=== PATIENT | male | born 1965 | race Caucasian/White ===

== ENCOUNTER → 2017-09-21 | Outpatient (REF) | payer OTHER | LOC: M LAB REF 09:40 | DX: J11.1 Influenza due to unidentified influenza virus with other respiratory manifestations (principal) | CPT/HCPCS: 87633 ==

== ENCOUNTER 2019-07-07 20:02 | Emergency (ER) | payer BC, OTHER ==
[~2019-07-07] VITALS: Ht 177.8 cm; Wt 145.4 kg
[2019-07-07] MEDS ORDERED: TRUL0.5I SC (20:17)
[2019-07-07] MEDS ORDERED: BIMA1SOL OD (20:17)
[2019-07-07] MEDS ORDERED: LEVE1INJ5 SC (20:17)
[2019-07-07] MEDS ORDERED: MULTCAP PO (20:17)
[2019-07-07] MEDS ORDERED: triglide PO (20:17)
[2019-07-07] MEDS ORDERED: METF-791 PO (20:17)
[2019-07-07] MEDS ORDERED: ASPI81CH44 PO (20:17)
[2019-07-07] MEDS ORDERED: PRIL20TA2 PO (20:17)
[2019-07-07] MEDS ORDERED: NOVOINJ3 SC (20:17)
[2019-07-07] MEDS ORDERED: GATI1SOL2 OP (20:17)
[2019-07-07] MEDS ORDERED: LOVA1CAP17 PO (20:17)
[2019-07-07] MEDS ORDERED: BENI1TAB3 PO (20:17)
[2019-07-07] MEDS ORDERED: CRES20TA2 PO (20:17)
[2019-07-07] MEDS ORDERED: D 202000 PO (20:17)
[2019-07-07] MEDS ORDERED: TETRACAINE 0.5% OPHTH SOLN 4ML OD ONE (21:00)
[2019-07-07 23:14] VITALS: BP 150/70
[2019-07-07] MEDS ORDERED: NORCO 5/325MG TABLET (BULK FOR ED) PO ONE (23:15)
== END 2019-07-07 23:23 | disposition home or self-care (01) ==
LOC: M ED 20:02
DX: S05.01XA Injury of conjunctiva and corneal abrasion without foreign body, right eye, initial encounter (principal); X58.XXXA Exposure to other specified factors, initial encounter; Y92.89 Other specified places as the place of occurrence of the external cause; E11.9 Type 2 diabetes mellitus without complications; I10 Essential (primary) hypertension; E78.5 Hyperlipidemia, unspecified; K21.9 Gastro-esophageal reflux disease without esophagitis; Z79.899 Other long term (current) drug therapy; Z79.82 Long term (current) use of aspirin; Z79.4 Long term (current) use of insulin

== ENCOUNTER → 2020-01-27 | Outpatient (CLI) | payer BC ==
[~2020-01-27] MED LIST: ASPI1CHW3 PO; BENI1TAB3 PO; BIMA1SOL OD; CRES20TA2 PO; D 202000 PO; GATI1SOL2 OP; LEVE1INJ5 SC; LOVA1CAP17 PO; METF-838 PO; MULTCAP PO; NOVOINJ3 SC; PRIL20TA2 PO; TRUL0.5I SC; triglide PO
--- NOTE | 2020-01-27 14:48 | REP ---
Duplex extremity venous ultrasound: Left lower extremity. History: Left leg pain. Rule out DVT. Findings: The deep veins are anechoic and fully compressible from the groin to the popliteal fossa in the left lower extremity. Color flow imaging is homogeneous. Spectral Doppler interrogation demonstrates intact respiratory variation in flow and normal manual augmentation of flow. There is no evidence of deep vein thrombosis. Impression: Negative left lower extremity duplex venous ultrasound. No evidence of deep vein thrombosis. Electronically Signed by Hubert Fisher MD 01/27/2020 02:39 P
== END ==
LOC: M WHC 14:15
PROVIDERS: ATTEND Orthopaedic Surgery Hand Surgery
DX: M79.662 Pain in left lower leg (principal)

== ENCOUNTER → 2020-03-27 | Outpatient (REF) | payer OTHER, BC | LOC: M LAB REF 09:35 | PROVIDERS: ATTEND Physician Assistant | DX: B07.9 Viral wart, unspecified (principal) ==

== ENCOUNTER → 2022-03-24 | Outpatient (CLI) | payer BC, OTHER ==
[2022-03-24 14:55] LABS: ALBUMIN 3.7 GM/DL (3.2-5.2); ALT/SGPT 63 U/L (12-78); BLOOD UREA NITROGEN 18 MG/DL (7-18); CALCIUM LEVEL 9.5 MG/DL (8.5-10.1); CARBON DIOXIDE LEVEL 27 MEQ/L (21-32); CHLORIDE LEVEL 107 MEQ/L (98-107); CREATININE FOR GFR 0.93 MG/DL (0.70-1.30); GLOMERULAR FILTRATION RATE > 60.0 (>56); GLUCOSE, FASTING 127 MG/DL (70-100); POTASSIUM SERUM 4.8 MEQ/L (3.5-5.1); SODIUM LEVEL 138 MEQ/L (136-145); TOTAL PROTEIN 6.6 GM/DL (6.4-8.2)
== END ==
LOC: M LAB 13:47
PROVIDERS: ATTEND Family Medicine
DX: E11.65 Type 2 diabetes mellitus with hyperglycemia (principal); I10 Essential (primary) hypertension

== ENCOUNTER → 2022-06-30 | Outpatient (REF) | payer OTHER, BC ==
[~2022-06-30] MED LIST changes: -BENI1TAB3 PO; +BIMA0.036 OD; -BIMA1SOL OD; +OLME20TA55 PO
[2022-06-30 12:02] LABS: HEMATOCRIT 43.7 % (42.0-52.0)
[2022-06-30 14:03] LABS: PHOSPHORUS LEVEL 4.7 MG/DL (2.5-4.9)
[2022-06-30 14:06] LABS: PERCENT SATURATION 18.4 % (19.7-50.0)
[2022-06-30 14:11] LABS: FERRITIN 177.5 NG/ML (10.5-307.3); TOTAL 25(OH) VITAMIN D 50.8 NG/ML (20.0-100.0)
== END ==
LOC: M LAB REF 11:07
PROVIDERS: ATTEND Family Medicine
DX: K91.2 Postsurgical malabsorption, not elsewhere classified (principal); Z98.84 Bariatric surgery status; Z86.39 Personal history of other endocrine, nutritional and metabolic disease; E55.9 Vitamin D deficiency, unspecified

== ENCOUNTER → 2022-10-14 | Outpatient (CLI) | payer BC, OTHER ==
[~2022-10-14] MED LIST changes: +INSU100I6 SC; -LEVE1INJ5 SC
[2022-10-14 14:44] LABS: BASO # 0.1 10^3/uL (0.0-0.2); EOS # 0.2 10^3/uL (0.0-0.5); EOS % 3.2 % (0.0-3.0); HEMOGLOBIN 12.7 g/dl (13.5-17.5); LYMPH # 2.8 10^3/uL (1.5-5.0); LYMPH % 46.7 % (24.0-44.0); MEAN CORPUSCULAR HEMOGLOBIN 28.3 pg (27.0-33.0); MEAN CORPUSCULAR HGB CONC 32.6 g/dl (32.0-36.5); MEAN CORPUSCULAR VOLUME 87.1 fl (80.0-96.0); MONO # 0.5 10^3/uL (0.0-0.8); MONO % 7.5 % (2.0-8.0); NEUTROPHILS # 2.5 10^3/uL (1.5-8.5); NEUTROPHILS % 41.1 % (36.0-66.0); PLATELET COUNT, AUTOMATED 261 10^3/uL (150-450); RED BLOOD COUNT 4.48 10^6/uL (4.30-6.10)
[2022-10-14 14:49] LABS: IRON (FE) 104 UG/DL (65-175)
[2022-10-14 14:50] LABS: PERCENT SATURATION 34.3 % (19.7-50.0); TOTAL IRON BINDING CAPACITY 303 UG/DL (250-425)
[2022-10-14 14:56] LABS: ALBUMIN 3.7 G/DL (3.2-5.2); ALKALINE PHOSPHATASE 141 U/L (46-116); ALT/SGPT 83 U/L (7.0-40); AST/SGOT 41 U/L (<34); BILIRUBIN,TOTAL 1.6 MG/DL (0.3-1.2); BLOOD UREA NITROGEN 15 MG/DL (9-23); CALCIUM LEVEL 9.1 MG/DL (8.5-10.1); CARBON DIOXIDE LEVEL 29 MMOL/L (20-31); CHLORIDE LEVEL 100 MMOL/L (98-107); CREATININE FOR GFR 0.71 MG/DL (0.70-1.30); FERRITIN 201.9 NG/ML (10.5-307.3); FOLATE > 24.00 NG/ML (>5.4); GLOMERULAR FILTRATION RATE > 60.0 (>56); GLUCOSE, FASTING 244 MG/DL (60-100); MAGNESIUM LEVEL 1.6 MG/DL (1.8-2.4); PHOSPHORUS LEVEL 3.9 MG/DL (2.5-4.9); POTASSIUM SERUM 4.6 MMOL/L (3.5-5.1); SODIUM LEVEL 134 MMOL/L (136-145); TOTAL PROTEIN 6.5 G/DL (5.7-8.2); VITAMIN B12 LEVEL 1613 PG/ML (211-911)
[2022-10-14 15:14] LABS: HEMOGLOBIN A1c 9.5 % (4.0-6.0)
== END ==
LOC: M LAB 13:43
PROVIDERS: ATTEND Physician Assistant Surgical
DX: K91.2 Postsurgical malabsorption, not elsewhere classified (principal); E55.9 Vitamin D deficiency, unspecified; Z98.84 Bariatric surgery status; Z86.39 Personal history of other endocrine, nutritional and metabolic disease

== ENCOUNTER → 2022-11-11 | Outpatient (REF) | payer BC, OTHER ==
[~2022-11-11] MED LIST changes: +ASPI-655 PO; -ASPI1CHW3 PO; -GATI1SOL2 OP; +GATI2.5D OP
== END ==
LOC: M LAB REF 16:17
PROVIDERS: ATTEND Family Medicine
DX: R74.01 Elevation of levels of liver transaminase levels (principal)

== ENCOUNTER → 2023-01-13 | Outpatient (CLI) | payer BC, OTHER | LOC: M RAD 07:25 | PROVIDERS: ATTEND Family Medicine | DX: R74.01 Elevation of levels of liver transaminase levels (principal) ==

== ENCOUNTER → 2023-03-10 | Outpatient (REF) | payer OTHER ==
[2023-03-10 12:34] LABS: HEMATOCRIT 40.8 % (42.0-52.0)
[2023-03-11 16:18] LABS: TOTAL 25(OH) VITAMIN D 39.3 NG/ML (20.0-100.0)
== END ==
LOC: M LAB REF 11:48
PROVIDERS: ATTEND Family Medicine
DX: D64.9 Anemia, unspecified (principal); K91.2 Postsurgical malabsorption, not elsewhere classified; Z98.84 Bariatric surgery status

== ENCOUNTER → 2023-07-24 | Outpatient (REF) | payer OTHER | LOC: M LAB REF 16:47 | PROVIDERS: ATTEND Family Medicine | DX: E11.65 Type 2 diabetes mellitus with hyperglycemia (principal); Z98.84 Bariatric surgery status ==

== ENCOUNTER → 2024-03-25 | Outpatient (CLI) | payer BC, OTHER ==
[2024-03-25 11:48] LABS: BASO % 0.4 % (0.0-1.0); EOS # 0.1 10^3/uL (0.0-0.5); EOS % 1.3 % (0.0-3.0); HEMATOCRIT 41.7 % (42.0-52.0); HEMOGLOBIN 13.9 g/dl (13.5-17.5); LYMPH # 2.6 10^3/uL (1.5-5.0); LYMPH % 38.7 % (24.0-44.0); MEAN CORPUSCULAR HEMOGLOBIN 29.1 pg (27.0-33.0); MEAN CORPUSCULAR HGB CONC 33.3 g/dl (32.0-36.5); MEAN CORPUSCULAR VOLUME 87.2 fl (80.0-96.0); MONO # 0.5 10^3/uL (0.0-0.8); NEUTROPHILS # 3.5 10^3/uL (1.5-8.5); PLATELET COUNT, AUTOMATED 222 10^3/uL (150-450); RED BLOOD COUNT 4.78 10^6/uL (4.30-6.10); WHITE BLOOD COUNT 6.7 10^3/uL (4.0-10.0)
[2024-03-25 12:16] LABS: ALBUMIN 3.6 G/DL (3.2-5.2); ALKALINE PHOSPHATASE 67 U/L (46-116); ALT/SGPT 59 U/L (7.0-40); AST/SGOT 20 U/L (<34); BILIRUBIN,TOTAL 1.3 MG/DL (0.3-1.2); BLOOD UREA NITROGEN 17 MG/DL (9-23); CALCIUM LEVEL 9.2 MG/DL (8.5-10.1); CARBON DIOXIDE LEVEL 30 MMOL/L (20-31); CHLORIDE LEVEL 103 MMOL/L (98-107); CHOLESTEROL LEVEL 185 MG/DL (<200); CHOLESTEROL RISK RATIO 2.91 (<5); CREATININE FOR GFR 0.79 MG/DL (0.70-1.30); GLOMERULAR FILTRATION RATE > 60.0 (>56); GLUCOSE, FASTING 106 MG/DL (60-100); HDL CHOLESTEROL 63.4 MG/DL (>40); IRON (FE) 100 UG/DL (65-175); MAGNESIUM LEVEL 1.7 MG/DL (1.8-2.4); NON-HDL-C 121.6 MG/DL; PERCENT SATURATION 29.7 % (19.7-50.0); PHOSPHORUS LEVEL 3.7 MG/DL (2.5-4.9); POTASSIUM SERUM 4.5 MMOL/L (3.5-5.1); SODIUM LEVEL 136 MMOL/L (136-145); TOTAL IRON BINDING CAPACITY 337 UG/DL (250-425); TOTAL PROTEIN 6.5 G/DL (5.7-8.2); TRIGLYCERIDES LEVEL 108 MG/DL (<150)
[2024-03-25 12:18] LABS: FERRITIN 81.8 NG/ML (10.5-307.3); FOLATE > 24.0 NG/ML (>5.4); TOTAL 25(OH) VITAMIN D 39.9 NG/ML (20.0-100.0)
[2024-03-25 12:19] LABS: VITAMIN B12 LEVEL 959 PG/ML (211-911)
[2024-03-25 12:21] LABS: HEMOGLOBIN A1c 8.5 % (4.0-6.0)
== END ==
LOC: M LAB 11:04
PROVIDERS: ATTEND Family Medicine
DX: D64.9 Anemia, unspecified (principal); I10 Essential (primary) hypertension; E11.65 Type 2 diabetes mellitus with hyperglycemia; E78.5 Hyperlipidemia, unspecified; K91.2 Postsurgical malabsorption, not elsewhere classified; E55.9 Vitamin D deficiency, unspecified; Z79.4 Long term (current) use of insulin; Z98.84 Bariatric surgery status

== ENCOUNTER → 2024-10-06 | Outpatient (CLI) | payer BC | LOC: M RAD 13:59 | PROVIDERS: ATTEND Family Medicine | DX: N40.1 Benign prostatic hyperplasia with lower urinary tract symptoms (principal); R35.0 Frequency of micturition ==

== ENCOUNTER → 2025-05-24 | Outpatient (CLI) | payer BC ==
[~2025-05-24] MED LIST changes: -ASPI-655 PO; +ASPI-737 PO
[2025-05-24 12:36] LABS: BASO # 0.1 10^3/uL (0.0-0.2); BASO % 0.8 % (0.0-1.0); EOS # 0.1 10^3/uL (0.0-0.5); EOS % 1.9 % (0.0-3.0); LYMPH # 2.3 10^3/uL (1.5-5.0); LYMPH % 36.5 % (24.0-44.0); MONO # 0.4 10^3/uL (0.0-0.8); MONO % 6.6 % (2.0-8.0); NEUTROPHILS # 3.4 10^3/uL (1.5-8.5); NEUTROPHILS % 54.0 % (36.0-66.0); PLATELET COUNT, AUTOMATED 229 10^3/uL (150-450)
[2025-05-24 12:55] LABS: ALT/SGPT 35 U/L (7.0-40); AST/SGOT 27 U/L (<34); CALCIUM LEVEL 9.3 MG/DL (8.5-10.1); CARBON DIOXIDE LEVEL 27 MMOL/L (20-31); CHLORIDE LEVEL 102 MMOL/L (98-107); CHOLESTEROL LEVEL 192 MG/DL (<200); CHOLESTEROL RISK RATIO 2.88 (<5); CREATININE FOR GFR 0.81 MG/DL (0.70-1.30); GLOMERULAR FILTRATION RATE > 90.0 (>56); LDL CHOLESTEROL 109.9 MG/DL (<100); NON-HDL-C 125.5 MG/DL; POTASSIUM SERUM 4.8 MMOL/L (3.5-5.1); SODIUM LEVEL 139 MMOL/L (136-145); TRIGLYCERIDES LEVEL 78 MG/DL (<150)
[2025-05-24 17:37] LABS: ESTIMATED AVERAGE GLUCOSE 177.0 MG/DL (60-110)
== END ==
LOC: M WUC 08:31
PROVIDERS: ATTEND Family Medicine
DX: E11.65 Type 2 diabetes mellitus with hyperglycemia (principal); I10 Essential (primary) hypertension; Z98.84 Bariatric surgery status

== ENCOUNTER → 2025-06-16 | Outpatient (REF) | payer OTHER ==
[2025-06-16 18:45] LABS: RSV AMPLIFICATION NEGATIVE (NEGATIVE)
== END ==
LOC: M LAB REF 17:10
PROVIDERS: ATTEND Physician Assistant Medical
DX: B34.9 Viral infection, unspecified (principal)